=== PATIENT | male | born 1945 | race African-American/Black ===

== ENCOUNTER 2019-11-13 09:14 | Emergency (ER) | payer MEDICARE, OTHER ==
[2019-11-13 09:40] VITALS: BP 153/95; TEMP 99.4; BMI 35.4
[2019-11-13] MEDS ORDERED: ALBUTEROL SO4 2.5/IPRATROPIUM 0.5 INH SOL 3 ML VIAL.NEB. NEB ONE ×2 (10:00→10:02)
--- NOTE | 2019-11-13 11:00 | PDOC ---
History of Present Illness - General Chief Complaint: Cold Symptoms Stated Complaint: COUGH Time Seen by Provider: 11/13/19 09:25 - History of Present Illness Initial Comments: 11/13/19 10:57 73 years old past medical history significant for hypertension diabetes high cholesterol former smoker presents to the ED with several day history of influenza-like illness over the weekend fever chills runny nose congestion fever and chills have stopped but presents with per persistent cough now productive saw some dark sputum Past History - Past Medical History Allergies/Adverse Reactions: Allergies Allergy/AdvReac Type Severity Reaction Status Date / Time No Known Allergies Allergy Verified 11/13/19 09:25 Home Medications: Ambulatory Orders Albuterol Sulfate Inhaler - [Ventolin Hfa Inhaler -] 1 - 2 inh PO Q4H #1 inhaler 11/13/19 Aspirin [Aspirin EC] 81 mg PO DAILY 11/13/19 Atorvastatin Ca [Lipitor] 10 mg PO DAILY 11/13/19 Dm/Pseudoephed/Acetaminoph/Cpm [Nicky-Penfield Plus-D Sinus-Cold] 1 each PO BID PRN 11/13/19 Doxycycline Monohydrate [Monodox] 100 mg PO Q12H #14 capsule 11/13/19 Losartan Potassium [Cozaar -] 50 mg PO DAILY 11/13/19 Metformin HCl [Glucophage] 1,000 mg PO BID 11/13/19 COPD: No Diabetes: Yes HTN: Yes Hypercholesterolemia: Yes - Psycho Social/Smoking Cessation Hx Smoking History: Former smoker Have you smoked in the past 12 months: No If you are a former smoker, when did you quit?: 2009 Information on smoking cessation initiated: No Hx Alcohol Use: Yes (COORS LIGHT) Drug/Substance Use Hx: No Review of Systems - Review of Systems Comments:: 11/13/19 10:57 ROS: A complete review of 10 out of 10 review of systems is taken and is negative apart from what is previously mentioned below and in the HPI. *Physical Exam - Vital Signs Last Vital Signs Temp Pulse Resp BP Pulse Ox 99.4 F 92 H 18 153/95 96 11/13/19 09:17 11/13/19 10:24 11/13/19 09:17 11/13/19 09:17 11/13/19 10:24 - Physical Exam 11/13/19 10:58 Vitals: Triage Vital signs reviewed General Appearance: No acute distress, well nourished well developed, Head: Atraumatic, Neck: Supple; no Nucal rigidity Chest Wall: Nontender Cardiac: Regular rate and rhythym, no murmurs, no rubs, no gallops, Lungs: Coarse breath sounds and slight wheeze at left base Abdomen: Soft, non distended, normal bowel sounds, non tender to palpation Extremities: Full range of motion to all extremities, no cyanosis, clubbing, or edema Skin: Warm and dry, no rashes or lesions, no rash, no petechiae Psych: Normal mood, normal affect ED Treatment Course - RADIOLOGY Radiology Studies Ordered: Category Date Time Status CHEST PA & LAT [RAD] Stat Radiology 11/13/19 10:00 Ordered - Medications Given in the ED: ED Medications Discontinued Medications Generic Name Dose Route Start Last Admin Trade Name Freq PRN Reason Stop Dose Admin Albuterol/Ipratropium 1 amp 11/13/19 10:00 11/13/19 10:07 Duoneb - NEB 11/13/19 10:01 1 amp ONCE ONE Administration Medical Decision Making - Medical Decision Making 11/13/19 10:58 History examination consistent with post viral pneumonia Will obtain chest x-ray DuoNeb for slight wheeze observe and reassess Patient feels better after DuoNeb will treat with 7-day course of doxycycline and have patient follow-up with his PCP Well-appearing no apparent distress findings, the need for follow-up and strict return instructions discussed with patient. Discharge - Discharge Information Problems reviewed: Yes Clinical Impression/Diagnosis: Pneumonia Qualifiers: Pneumonia type: due to unspecified organism Laterality: left Lung location: lower lobe of lung Qualified Code(s): J18.9 - Pneumonia, unspecified organism Condition: Good Disposition: HOME - Admission No - Additional Discharge Information Prescriptions: Albuterol Sulfate Inhaler - [Ventolin Hfa Inhaler -] 1 - 2 inh PO Q4H #1 inhaler Doxycycline Monohydrate [Monodox] 100 mg PO Q12H #14 capsule - Follow up/Referral Referrals: Qiana Tavarez MD [Primary Care Provider] - - Patient Discharge Instructions Patient Printed Discharge Instructions: DI for Pneumonia -- Adult Additional Instructions: Doxycycline as prescribed. Take [id number] Tylenol as needed for fever as directed on package. Take Ventolin MDI as prescribed for cough. Follow-up with your doctor in 1 to 2 days. Return to the emergency department for any severe worsening symptoms or for any concerns. - Post Discharge Activity
[2019-11-13 11:16] VITALS: PULSE 88
== END 2019-11-13 11:21 | disposition home or self-care (01) ==
LOC: FER 09:14 → SUPCPDRO 09:14 → FER 11:21
DX: J18.9 Pneumonia, unspecified organism (principal); Z87.891 Personal history of nicotine dependence; E11.9 Type 2 diabetes mellitus without complications; I10 Essential (primary) hypertension; E78.00 Pure hypercholesterolemia, unspecified
CPT/HCPCS: 71046-TC-FY; 99282-25

== ENCOUNTER 2022-10-29 10:53 | Emergency (ER) | payer MEDICARE, OTHER ==
[2022-10-29 11:01] VITALS: TEMP 98; BMI 35.9
[2022-10-29] MEDS ORDERED: ONDANSETRON 4 MG/2 ML VIAL IVPUSH ONE (11:30)
[2022-10-29] MEDS ORDERED: LACTATED RINGERS SOLUTION 1000 ML INFUS.BAG IV ONE (11:31)
[2022-10-29] MEDS ORDERED: FAMOTIDINE 20 MG/50 ML IVPB 20 MG/50 ML MG IVPB ONE ×2 (11:31→11:55)
[2022-10-29] MEDS ORDERED: ONDANSETRON 4 MG/2 ML VIAL ONE (11:55)
[2022-10-29 12:24] LABS: HEMATOCRIT 44.8 % (35.4-49); HEMOGLOBIN 15.2 G/dL (11.7-16.9); MCH 32.8 pg (25.7-33.7); MCHC 33.9 g/dl (32.0-35.9); MEAN CELL VOLUME 96.7 fl (80-96); MEAN PLT VOLUME 10.6 fl (7.5-11.1); PLATELET COUNT 163.3 10^3/uL (134-434); RBC 4.63 10^6/uL (4.00-5.60); RDW 13.6 % (11.9-15.9); WHITE BLOOD COUNT 10.2 10^3/uL (4.0-10.8)
[2022-10-29 12:30] LABS: INR 1.07 (0.83-1.09); PROTHROMBIN TIME (PATIENT) 12.3 SEC (9.7-13.0)
[2022-10-29 12:32] LABS: ALBUMIN 4.4 g/dl (3.4-5.0); CALCIUM 9.1 mg/dl (8.5-10); CREATININE 0.9 mg/dl (0.55-1.3); TOT PROT 7.6 g/dl (6.4-8.2)
[2022-10-29 13:26] VITALS: BP 122/68; PULSE 89; RESP 18
[2022-10-29 14:35] LABS: PLATELET ESTIMATE ADEQUATE
[2022-10-29 14:41] LABS: ACTIVATED PTT 30.2 SECONDS (25.2-36.5)
[2022-10-29 15:27] LABS: LACTIC ACID 2.6 mmol/L (0.4-2.0)
== END 2022-10-29 13:25 | disposition home or self-care (01) ==
LOC: FER 10:53
PROC: 3E033GC Introduction of Other Therapeutic Substance into Peripheral Vein, Percutaneous Approach (ICD-10-PCS; principal; 2022-10-29)
DX: R11.2 Nausea with vomiting, unspecified (principal); R19.7 Diarrhea, unspecified
CPT/HCPCS: 0241U-QW; 36415; 80053; 83605; 85025; 85610; 85730; 86850; 86900; 86901; 87040; 93005; 99284-25